=== PATIENT | male | born 1955 | race Caucasian/White ===

== ENCOUNTER 2017-07-13 20:33 | Inpatient (IN) ==
[2017-07-13] MEDS ORDERED: METOPROLOL TARTRATE 5 MG/5 ML VIAL IV STA (22:39)
[2017-07-13] MEDS ORDERED: ASPIRIN 325 MG TABLET PO STA (22:39)
[2017-07-13] MEDS ORDERED: METOCLOPRAMIDE 10 MG/2 ML VIAL IV STA (22:39)
[2017-07-13] MEDS ORDERED: ONDANSETRON 4 MG/2 ML VIAL IV STA (22:39)
[2017-07-13] MEDS ORDERED: NITROGLYCERIN 2% OINT 1 INCH/GM PACK TOP STA (22:39)
[2017-07-13] MEDS ORDERED: ENOXAPARIN 100 MG/ML SYRINGE SUBCUT STA (22:39)
[2017-07-13] MEDS ORDERED: NITROGLYCERIN 2% OINT 1 INCH/GM PACK TOP ONE (23:23)
[2017-07-13] MEDS ORDERED: ENOXAPARIN 120 MG/0.8 ML SYRINGE SUBCUT ONE (23:23)
[2017-07-13] MEDS ORDERED: METOCLOPRAMIDE 10 MG/2 ML VIAL ONE (23:24)
[2017-07-13] MEDS ORDERED: ONDANSETRON 4 MG/2 ML VIAL ONE (23:24)
[2017-07-13] MEDS ORDERED: METOPROLOL TARTRATE 5 MG/5 ML VIAL IV ONE (23:24)
[2017-07-13] MEDS ORDERED: ASPIRIN 325 MG TABLET ONE (23:24)
[2017-07-13 23:25] LABS: Basophils % 0.5 % (0.0-0.8); Eosinophils # 0.1 10*3/uL (0.0-0.87); Eosinophils % 1.4 % (0.00-10.9); Hematocrit 30.9 VOL% (42.0-52.0); Hemoglobin 9.6 GM/DL (14.0-18.0); Immature Granulocytes % 0.5 %; Immature Granulocytes Absolute 0.03 #; Lymphocytes # 1.7 10*3/uL (1.4-4.0); Lymphocytes % 25.9 % (21.2-54.2); Mean Corpuscular HGB Conc 31.1 GM/DL (32-36); Mean Corpuscular Hemoglobin 24 PG (27-34); Mean Corpuscular Volume 77.4 FL (87-102); Monocytes # 0.4 10*3/uL (0.11-0.8); Monocytes % 6.5 % (1.7-12.7); Neutrophils # 4.3 10*3/uL (1.4-7.4); Neutrophils % 65.2 % (38.7-73.9); Platelet Count 287 T/CUMM (130-400); Red Blood Count 3.99 MC/CUMM (3.8-5.5); Red Cell Distribution Width 16.6 % (9.3-17.3); White Blood Count 6.6 T/CUMM (4-12)
[2017-07-13 23:34] LABS: INR 0.9; Partial Thromboplastin Time 22.5 SECS (0-40)
[2017-07-13 23:50] LABS: Alanine Aminotransferase 24 U/L (16-61); Albumin 3.3 G/DL (3.4-5.0); Alkaline Phosphatase 52 U/L (45-117); Aspartate Amino Transferase 12 U/L (0-37); Blood Urea Nitrogen 13 MG/DL (7-18); Calcium 9.9 MG/DL (8.5-10.1); Glucose 127 MG/DL (74-106); Magnesium 1.7 MG/DL (1.8-2.4); Osmolality,Calculated 280.4 MOS/KG (273-304); Potassium 3.6 MMOL/L (3.5-5.1); Sodium 140 MMOL/L (136-145); Total Protein 6.7 G/DL (6.4-8.3); Troponin I Only < 0.015 NG/ML (0.00-0.045)
[2017-07-14] MEDS ORDERED: ONDANSETRON 4 MG/2 ML VIAL IV STA (00:06)
[2017-07-14] MEDS ORDERED: MORPHINE 2 MG/1 ML SYRINGE IV STA (00:06)
[2017-07-14] MEDS ORDERED: ACETAMINOPHEN 325 MG TABLET PO PRN (01:47)
[2017-07-14] MEDS ORDERED: MORPHINE 2 MG/1 ML SYRINGE IV PRN (01:47)
[2017-07-14] MEDS ORDERED: ONDANSETRON 4 MG/2 ML VIAL IV PRN (01:47)
[2017-07-14] MEDS ORDERED: GLUCAGON 1 MG VIAL IM PRN (01:53)
[2017-07-14] MEDS ORDERED: DEXTROSE 50% 25 GM/50 ML VIAL IV PRN (01:53)
[2017-07-14] MEDS ORDERED: NITROGLYCERIN 2% OINT 1 INCH/GM PACK TOP SCH (02:00)
[2017-07-14] MEDS: ENOXAPARIN 120 MG/0.8 ML SYRINGE SUBCUT SCH ×2 (04:38→13:56)
[2017-07-14] MEDS: SODIUM CHLORIDE 0.9% 1,000 ML IV SCH ×2 (04:38→14:46)
[2017-07-14] MEDS: METOPROLOL TARTRATE 25 MG TABLET PO SCH ×3 (04:39→20:53)
[2017-07-14] MEDS ORDERED: NITROGLYCERIN SL 0.4 MG TABLET SL ONE (04:53)
[2017-07-14] MEDS: NITROGLYCERIN DRIP 50 MG/250 ML BOTTLE IV SCH (05:07)
[2017-07-14] MEDS ORDERED: KETOROLAC 30 MG/1 ML VIAL IV ONE (06:06)
[2017-07-14] MEDS: INSULIN LISPRO 100 UNIT/ML SUBCUT SCH ×3 (06:28→17:51)
[2017-07-14 06:53] LABS: Risk Ratio 3.91; VLDL CHOLESTEROL 41.6 MG/DL
[2017-07-14] MEDS: MORPHINE 2 MG/1 ML SYRINGE IV PRN ×4 (08:08→20:55)
[2017-07-14] MEDS: ASPIRIN EC 325 MG TABLET PO SCH (08:09)
[2017-07-14] MEDS: GLIMEPIRIDE 2 MG TABLET PO SCH (08:09)
[2017-07-14] MEDS: PANTOPRAZOLE 40 MG TABLET PO SCH (08:09)
[2017-07-14] MEDS: GABAPENTIN 300 MG CAPSULE PO SCH ×3 (08:09→20:52)
[2017-07-14] MEDS: DOCUSATE SODIUM 100 MG CAPSULE PO SCH ×2 (08:18→20:53)
[2017-07-14] MEDS ORDERED: CLOPIDOGREL 300 MG TABLET PO ONE (08:35)
[2017-07-14] MEDS: MAGNESIUM OXIDE 400 MG TABLET PO SCH ×2 (09:15→20:52)
[2017-07-14] MEDS: LISINOPRIL 5 MG TABLET PO SCH (09:15)
[2017-07-14] MEDS: ATORVASTATIN 40 MG TABLET PO SCH (20:52)
[2017-07-14] MEDS ORDERED: SIMVASTATIN 40 MG TABLET PO SCH (21:00)
[2017-07-15] MEDS: INSULIN LISPRO 100 UNIT/ML SUBCUT SCH ×4 (00:17→17:51)
[2017-07-15] MEDS: MORPHINE 2 MG/1 ML SYRINGE IV PRN ×6 (00:19→22:15)
[2017-07-15] MEDS: ENOXAPARIN 120 MG/0.8 ML SYRINGE SUBCUT SCH ×2 (02:06→15:07)
[2017-07-15 04:49] LABS: Basophils % 0.2 % (0.0-0.8); Eosinophils # 0.1 10*3/uL (0.0-0.87); Eosinophils % 2.6 % (0.00-10.9); Hematocrit 28.3 VOL% (42.0-52.0); Hemoglobin 8.6 GM/DL (14.0-18.0); Immature Granulocytes % 0.5 %; Immature Granulocytes Absolute 0.02 #; Lymphocytes # 1.1 10*3/uL (1.4-4.0); Mean Corpuscular HGB Conc 30.4 GM/DL (32-36); Mean Corpuscular Hemoglobin 24 PG (27-34); Mean Corpuscular Volume 77.7 FL (87-102); Mean Platelet Volume 10.6 FL (9.6-12.0); Monocytes # 0.3 10*3/uL (0.11-0.8); Monocytes % 7.9 % (1.7-12.7); Neutrophils # 2.6 10*3/uL (1.4-7.4); Neutrophils % 61.8 % (38.7-73.9); Platelet Count 236 T/CUMM (130-400); Red Blood Count 3.64 MC/CUMM (3.8-5.5); Red Cell Distribution Width 16.4 % (9.3-17.3); White Blood Count 4.2 T/CUMM (4-12)
[2017-07-15 05:13] LABS: Calcium 8.8 MG/DL (8.5-10.1); Potassium 4.2 MMOL/L (3.5-5.1)
[2017-07-15] MEDS: SODIUM CHLORIDE 0.9% 1,000 ML IV SCH ×2 (05:22→18:34)
[2017-07-15] MEDS: NITROGLYCERIN DRIP 50 MG/250 ML BOTTLE IV SCH (05:22)
[2017-07-15 11:31] LABS: Troponin I Only < 0.015 NG/ML (0.00-0.045)
[2017-07-15] MEDS: ASPIRIN EC 325 MG TABLET PO SCH (11:37)
[2017-07-15] MEDS: MAGNESIUM OXIDE 400 MG TABLET PO SCH ×2 (11:37→22:15)
[2017-07-15] MEDS: ISOSORBIDE MONONITRATE 30 MG TABLET PO SCH (11:37)
[2017-07-15] MEDS: CLOPIDOGREL 75 MG TABLET PO SCH (11:37)
[2017-07-15] MEDS: LISINOPRIL 5 MG TABLET PO SCH (11:38)
[2017-07-15] MEDS: PANTOPRAZOLE 40 MG TABLET PO SCH (11:38)
[2017-07-15] MEDS: GABAPENTIN 300 MG CAPSULE PO SCH ×3 (11:38→22:14)
[2017-07-15] MEDS: METOPROLOL TARTRATE 25 MG TABLET PO SCH ×2 (11:38→22:15)
[2017-07-15] MEDS: DOCUSATE SODIUM 100 MG CAPSULE PO SCH ×2 (11:39→22:13)
[2017-07-15] MEDS: GLIMEPIRIDE 2 MG TABLET PO SCH (11:39)
[2017-07-15] MEDS: ATORVASTATIN 40 MG TABLET PO SCH (22:17)
[2017-07-16] MEDS: INSULIN LISPRO 100 UNIT/ML SUBCUT SCH ×5 (00:10→17:09)
[2017-07-16] MEDS: MORPHINE 2 MG/1 ML SYRINGE IV PRN ×6 (01:03→22:15)
[2017-07-16] MEDS: ENOXAPARIN 120 MG/0.8 ML SYRINGE SUBCUT SCH ×2 (01:04→14:36)
[2017-07-16 01:34] LABS: Apearance,Urine CLEAR (Clear); Bilirubin,Urine Negative (Negative); Blood, Urine Negative (Negative); Glucose,Urine (UA) Negative (Negative); Ketones,Urine Negative (Negative); Nitrite,Urine Negative (Negative); Protein,Urine Negative; Squamous Epithelial Cell,Urine Occasional /HPF (0-10); Urine Color Straw (Yellow); Urine Specific Gravity 1.004 (1.001-1.035); Urine Urobilinogen < 2.0 EU/DL (0.2-1.0); WBC,Urine <1 /HPF (0-6)
[2017-07-16] MEDS: NITROGLYCERIN DRIP 50 MG/250 ML BOTTLE IV SCH (05:52)
[2017-07-16 07:27] LABS: Eosinophils # 0.1 10*3/uL (0.0-0.87); Eosinophils % 2.4 % (0.00-10.9); Hematocrit 28.5 VOL% (42.0-52.0); Hemoglobin 8.7 GM/DL (14.0-18.0); Immature Granulocytes % 0.2 %; Immature Granulocytes Absolute 0.01 #; Lymphocytes % 20.5 % (21.2-54.2); Mean Corpuscular HGB Conc 30.5 GM/DL (32-36); Mean Corpuscular Hemoglobin 24 PG (27-34); Mean Corpuscular Volume 77.4 FL (87-102); Mean Platelet Volume 10.2 FL (9.6-12.0); Monocytes # 0.3 10*3/uL (0.11-0.8); Monocytes % 6.7 % (1.7-12.7); Neutrophils # 3.6 10*3/uL (1.4-7.4); Neutrophils % 70.2 % (38.7-73.9); Platelet Count 243 T/CUMM (130-400); Red Blood Count 3.68 MC/CUMM (3.8-5.5); Red Cell Distribution Width 15.9 % (9.3-17.3); White Blood Count 5.1 T/CUMM (4-12)
[2017-07-16 07:59] LABS: Calcium 8.9 MG/DL (8.5-10.1); Magnesium 2.3 MG/DL (1.8-2.4); Potassium 4.2 MMOL/L (3.5-5.1)
[2017-07-16] MEDS: LISINOPRIL 5 MG TABLET PO SCH (09:50)
[2017-07-16] MEDS: GABAPENTIN 300 MG CAPSULE PO SCH ×4 (09:50→23:32)
[2017-07-16] MEDS: MAGNESIUM OXIDE 400 MG TABLET PO SCH ×3 (09:50→23:33)
[2017-07-16] MEDS: CLOPIDOGREL 75 MG TABLET PO SCH (09:50)
[2017-07-16] MEDS: METOPROLOL TARTRATE 25 MG TABLET PO SCH ×3 (09:50→23:33)
[2017-07-16] MEDS: PANTOPRAZOLE 40 MG TABLET PO SCH (09:50)
[2017-07-16] MEDS: ISOSORBIDE MONONITRATE 30 MG TABLET PO SCH (09:51)
[2017-07-16] MEDS: GLIMEPIRIDE 2 MG TABLET PO SCH (09:51)
[2017-07-16] MEDS: ASPIRIN EC 325 MG TABLET PO SCH (09:51)
[2017-07-16] MEDS: DOCUSATE SODIUM 100 MG CAPSULE PO SCH ×2 (09:51→22:12)
[2017-07-16] MEDS: predniSONE 20 MG TABLET PO SCH ×4 (09:56→23:33)
[2017-07-16] MEDS: FAMOTIDINE 20 MG TABLET PO SCH ×3 (09:56→23:33)
[2017-07-16] MEDS: SODIUM CHLORIDE 0.9% 1,000 ML IV SCH ×2 (12:56→22:09)
[2017-07-16] MEDS ORDERED: DIAZEPAM 5 MG TABLET PO ONE (17:46)
[2017-07-16] MEDS ORDERED: MAGNESIUM SULF RIDER 2 GM in PREMIX 1 EACH IV PRN (17:46)
[2017-07-16] MEDS ORDERED: POTASSIUM CHLORIDE RIDER 10 MEQ in PREMIX 1 EACH IV PRN (17:46)
[2017-07-16] MEDS: ATORVASTATIN 40 MG TABLET PO SCH ×2 (22:14→23:33)
[2017-07-16] MEDS: diphenhydrAMINE CAP 50 MG CAPSULE PO SCH ×2 (22:14→23:32)
[2017-07-17] MEDS: INSULIN LISPRO 100 UNIT/ML SUBCUT SCH ×2 (01:27→06:02)
[2017-07-17 01:37] VITALS: BP 154/77
[2017-07-17] MEDS: diphenhydrAMINE CAP 50 MG CAPSULE PO SCH ×2 (02:08→06:02)
[2017-07-17] MEDS: predniSONE 20 MG TABLET PO SCH ×2 (03:59→09:58)
[2017-07-17] MEDS: NITROGLYCERIN DRIP 50 MG/250 ML BOTTLE IV SCH (06:02)
[2017-07-17] MEDS ORDERED: LOSARTAN 25 MG TABLET PO SCH (09:00)
[2017-07-17] MEDS: GLIMEPIRIDE 2 MG TABLET PO SCH (09:55)
[2017-07-17] MEDS: ASPIRIN EC 325 MG TABLET PO SCH (09:55)
[2017-07-17] MEDS: DOCUSATE SODIUM 100 MG CAPSULE PO SCH (09:55)
[2017-07-17] MEDS: ISOSORBIDE MONONITRATE 30 MG TABLET PO SCH (09:56)
[2017-07-17] MEDS: METOPROLOL TARTRATE 25 MG TABLET PO SCH (09:56)
[2017-07-17] MEDS: GABAPENTIN 300 MG CAPSULE PO SCH (09:57)
[2017-07-17] MEDS: MAGNESIUM OXIDE 400 MG TABLET PO SCH (09:57)
[2017-07-17] MEDS: PANTOPRAZOLE 40 MG TABLET PO SCH (09:58)
[2017-07-17] MEDS: CLOPIDOGREL 75 MG TABLET PO SCH (09:58)
[2017-07-17] MEDS: FAMOTIDINE 20 MG TABLET PO SCH (09:58)
== END 2017-07-17 11:45 | disposition left against medical advice (07) | DRG 303 ==
LOC: N.ED 20:33 → N.EDINP 07-14 01:46 → SUATTDRO 07-14 01:46 → N.ICU 07-14 02:35 → N.TELEN 07-14 18:59
PROVIDERS: ADMIT Internal Medicine Geriatric Medicine; ATTEND Family Medicine